=== PATIENT | female | born 1985 | race Caucasian/White ===

== ENCOUNTER 2023-10-21 06:39 | Emergency (ER) | payer OTHER, BC ==
[~2023-10-21] VITALS: Ht 162.6 cm; Wt 65.3 kg
[2023-10-21 06:58] VITALS: BP_SYST 118; PULSE 78; RESP 18; TEMP 97.4; O2SAT 98
[2023-10-21] MEDS ORDERED: ACET-2634 PO (10:42)
[2023-10-21 11:01] VITALS: BP_SYST 118; PULSE 78; RESP 18; TEMP 97.4; O2SAT 98
== END 2023-10-21 11:01 | disposition home or self-care (01) ==
LOC: SED 06:39
DX: M79.18 Myalgia, other site (principal); R51.9 Headache, unspecified; M54.2 Cervicalgia; R20.2 Paresthesia of skin; Z79.899 Other long term (current) drug therapy
CPT/HCPCS: 70450-TC; 72072; 72125-TC; 81025; 99284